=== PATIENT | male | born 1945 | race Caucasian/White ===

== ENCOUNTER 2018-02-12 10:47 | Inpatient (IN) | payer OTHER, MEDICARE ==
[~2018-02-12] VITALS: Ht 175.3 cm; Wt 68.9 kg
[~2018-02-12 10:47] MED LIST: AMIT25 PO; AMLO5 PO; ASPI81CH PO; ASPI81EC; ATOR40TA PO; CLOP75; CLOP75 PO; CYCL10 PO; FAMO20 PO; HYDACE5 PO; HYDACE5325 PO; ISOMON30; LISI20 PO; LISI5; LORA1 PO; MELO7.5 PO; METO100 PO; METO25 PO; METO50; NITR.3SL; NITR.4SL SL; Nitroglycerin0.4 MG SL; Norco 10-325 T1 EACH PO; OMEP20ER PO; OXYACE5T PO; OXYC5 PO; PRAV10 PO; PROC5 PO; PROM25 PO; PYRI100 PO; QUET100 PO; RANI150 PO; SERT50 PO; SIMV40; TRAM50 PO; TRAZ100; TRIHYD253B PO; Ultram50 MG PO
[2018-02-13 05:33] LABS: BASOPHILS PERCENT AUTO 1 % (0-2); EOSINOPHILS ABSOLUTE AUTO 0.29 K/mm3 (0.00-0.68); EOSINOPHILS PERCENT AUTO 3 % (0-6); Hemoglobin 14.2 g/dL (13.5-17.5); IMMATURE GRAN ABSOLUTE AUTO 0.03 K/mm3 (0.00-0.10); IMMATURE GRAN PERCENT AUTO 0 % (0-1); LYMPHOCYTES ABSOLUTE AUTO 1.98 K/mm3 (0.84-5.20); LYMPHOCYTES PERCENT AUTO 19 % (21-46); MONOCYTES ABSOLUTE AUTO 0.98 K/mm3 (0.16-1.47); MONOCYTES PERCENT AUTO 10 % (4-13); Mean Corpuscular HGB 30.9 pg (26.0-34.0); Mean Corpuscular HGB Conc 33.8 g/dL (31.5-36.5); Mean Corpuscular Volume 92 fL (80-100); NEUTROPHILS ABSOLUTE AUTO 6.97 K/mm3 (1.96-9.15); NEUTROPHILS PERCENT AUTO 67 % (41-73); Platelet Count 339 K/mm3 (150-400); RDW Coefficient Variation 13.5 % (11.7-14.2); Red Blood Cell Count 4.59 M/mm3 (4.30-5.90); White Blood Cell Count 10.35 K/mm3 (4.00-11.30)
[2018-02-13 05:51] LABS: Anion Gap 7 mmol/L (6-16); Blood Urea Nitrogen 18 mg/dL (8-24); Bun/Creatinine Ratio 29.8 (12.0-20.0); CO2, Blood 25 mmol/L (21-32); Calcium, Blood 8.6 mg/dL (8.5-10.1); Chloride, Blood 110 mmol/L (98-108); Creatinine, Blood 0.61 mg/dL (0.60-1.20); Glomerular Filtration Rate >60 (60-); Glucose, Blood 97 mg/dL (70-99); Potassium, Blood 4.1 mmol/L (3.5-5.5); Sodium, Blood 142 mmol/L (136-145)
[2018-02-15] MEDS ORDERED: ACET325 PO (10:48)
[2018-02-15] MEDS ORDERED: ALUM-MAG HYDRO360 ML PO (10:49)
[2018-02-15] MEDS ORDERED: DOCU100 PO (10:49)
[2018-02-15] MEDS ORDERED: HYOS.125 SL (10:50)
== END 2018-02-15 12:35 | disposition home or self-care (01) | DRG 392 ==
LOC: ER 10:47 → MEDS 10:48
PROVIDERS: Hospitalist
DX: K52.9 Noninfective gastroenteritis and colitis, unspecified (principal); K56.7 Ileus, unspecified; I10 Essential (primary) hypertension; I25.10 Atherosclerotic heart disease of native coronary artery without angina pectoris; F41.8 Other specified anxiety disorders; Z95.5 Presence of coronary angioplasty implant and graft; Z79.82 Long term (current) use of aspirin; G89.29 Other chronic pain
CPT/HCPCS: 36415; 74018; 74177; 80048; 85025; 96361; 96372; 96374; 96375; 96376; 99285; C9113; G0378; J1650; J1885; J2405; J2765; J3010; J7120; Q9967

== ENCOUNTER 2022-11-20 23:26 | Observation (INO) | payer OTHER ==
[~2022-11-20] VITALS: Ht 165.1 cm; Wt 72.6 kg
[~2022-11-20 23:26] MED LIST changes: +ACET325 PO; +ALUM-MAG HYDRO360 ML PO; +CARAFATE1 GM/10 M1 PO; +DOCU100 PO; +HYOS.125 SL; +ONDA4ODT MM
[2022-11-20 23:51] LABS: BASOPHILS PERCENT AUTO 1 % (0-2); EOSINOPHILS ABSOLUTE AUTO 0.07 K/mm3 (0.00-0.68); EOSINOPHILS PERCENT AUTO 1 % (0-6); Hematocrit 44.2 % (37.0-53.0); Hemoglobin 14.9 g/dL (13.5-17.5); IMMATURE GRAN ABSOLUTE AUTO 0.04 K/mm3 (0.00-0.10); IMMATURE GRAN PERCENT AUTO 0 % (0-1); LYMPHOCYTES PERCENT AUTO 10 % (21-46); MONOCYTES ABSOLUTE AUTO 0.95 K/mm3 (0.16-1.47); MONOCYTES PERCENT AUTO 8 % (4-13); Mean Corpuscular HGB 30.9 pg (26.0-34.0); Mean Corpuscular HGB Conc 33.7 g/dL (31.5-36.5); Mean Corpuscular Volume 92 fL (80-100); Mean Platelet Volume 10.8 fL (9.1-12.4); NEUTROPHILS ABSOLUTE AUTO 10.11 K/mm3 (1.96-9.15); NEUTROPHILS PERCENT AUTO 80 % (41-73); Platelet Count 233 K/mm3 (150-400); RDW Coefficient Variation 15.3 % (11.7-14.2); Red Blood Cell Count 4.82 M/mm3 (4.30-5.90); White Blood Cell Count 12.57 K/mm3 (4.00-11.30)
[2022-11-21 00:05] LABS: Albumin, Blood 3.2 g/dL (3.4-5.0); Albumin/Globulin Ratio 0.8 (0.8-1.8); Bilirubin, Total 0.6 mg/dL (0.1-1.0); Bun/Creatinine Ratio 23.7 (12.0-20.0); Calcium, Blood 9.2 mg/dL (8.5-10.1); Creatinine, Blood 0.76 mg/dL (0.60-1.20); Globulin, Blood 3.8 g/dL (2.2-4.0)
[2022-11-21 05:06] LABS: BASOPHILS ABSOLUTE AUTO 0.06 K/mm3 (0.00-0.23); BASOPHILS PERCENT AUTO 0 % (0-2); EOSINOPHILS PERCENT AUTO 0 % (0-6); Hematocrit 45.6 % (37.0-53.0); Hemoglobin 15.6 g/dL (13.5-17.5); IMMATURE GRAN ABSOLUTE AUTO 0.04 K/mm3 (0.00-0.10); IMMATURE GRAN PERCENT AUTO 0 % (0-1); LYMPHOCYTES ABSOLUTE AUTO 0.67 K/mm3 (0.84-5.20); LYMPHOCYTES PERCENT AUTO 4 % (21-46); MONOCYTES ABSOLUTE AUTO 0.67 K/mm3 (0.16-1.47); MONOCYTES PERCENT AUTO 4 % (4-13); Mean Corpuscular HGB 31.2 pg (26.0-34.0); Mean Corpuscular HGB Conc 34.2 g/dL (31.5-36.5); Mean Corpuscular Volume 91 fL (80-100); Mean Platelet Volume 10.6 fL (9.1-12.4); NEUTROPHILS ABSOLUTE AUTO 14.39 K/mm3 (1.96-9.15); NEUTROPHILS PERCENT AUTO 91 % (41-73); Platelet Count 228 K/mm3 (150-400); RDW Coefficient Variation 15.2 % (11.7-14.2); RDW Standard Deviation 51.5 fL (35.1-46.3); White Blood Cell Count 15.83 K/mm3 (4.00-11.30)
[2022-11-21] MEDS ORDERED: CYCLOBENZAPRINE5 MG PO (05:20)
[2022-11-21] MEDS ORDERED: PROM25 PO (05:21)
[2022-11-21] MEDS ORDERED: LOSA25 PO (05:24)
[2022-11-21] MEDS ORDERED: METO25 PO (05:25)
[2022-11-21] MEDS ORDERED: QUET25 PO (05:26)
--- NOTE | 2022-11-21 05:30 | NUR ---
SHIFT SUMMARY: PT IS ALERT AND ORIENTED. PT IS RATHER ANXIOUS AND CONCERNED ABOUT HIS CONDITION. PT IS COOPERATIVE WITH CARE. PT IS A STANDBY ASSIST TO THE BATHROOM. PT REPORTS ABD/EPIGASTRIC PAIN, NAUSEA, AND VOMITING, MEDICATING PER EMAR. PT DENIES SOB, SATS > 90% ON ROOM AIR. FLUIDS RUNNING ORDERED. TELE IN PLACE, RUNNING SINUS TACH. BED IN LOW POSITION, CALL LIGHT WITHIN REACH. WILL CONTINUE TO MONITOR AND REPORT TO DAY NURSE.
[2022-11-21 05:36] LABS: Albumin, Blood 3.4 g/dL (3.4-5.0); Albumin/Globulin Ratio 0.9 (0.8-1.8); Bilirubin, Total 0.8 mg/dL (0.1-1.0); Bun/Creatinine Ratio 26.3 (12.0-20.0); Calcium, Blood 8.9 mg/dL (8.5-10.1); Creatinine, Blood 0.72 mg/dL (0.60-1.20); Globulin, Blood 3.9 g/dL (2.2-4.0); Potassium, Blood 3.9 mmol/L (3.5-5.5); Total Protein, Blood 7.3 g/dL (6.4-8.2)
[2022-11-21 10:15] LABS: CPK Creatine Kinase 26 U/L (39-308)
--- NOTE | 2022-11-21 18:16 | NUR ---
SHIFT SUMMARY PT A&OX4 AND IN PLEASENT TALKATIVE MOOD T/O SHIFT. TOLERATING PO INTAKE, C/O PAIN T/O SHIFT MEDICATED PER EMAR. NAUSEA MEDICATED PER EMAR. CALL LIGHT W/IN REACH. IND IN ROOM. TELE IN PLACE, SR.
[2022-11-21 18:33] LABS: CPK Creatine Kinase 35 U/L (39-308)
[2022-11-22 06:15] LABS: BASOPHILS ABSOLUTE AUTO 0.09 K/mm3 (0.00-0.23); BASOPHILS PERCENT AUTO 1 % (0-2); EOSINOPHILS ABSOLUTE AUTO 0.11 K/mm3 (0.00-0.68); EOSINOPHILS PERCENT AUTO 1 % (0-6); Hematocrit 42.7 % (37.0-53.0); Hemoglobin 14.5 g/dL (13.5-17.5); IMMATURE GRAN ABSOLUTE AUTO 0.05 K/mm3 (0.00-0.10); IMMATURE GRAN PERCENT AUTO 0 % (0-1); LYMPHOCYTES ABSOLUTE AUTO 1.31 K/mm3 (0.84-5.20); LYMPHOCYTES PERCENT AUTO 9 % (21-46); MONOCYTES ABSOLUTE AUTO 1.18 K/mm3 (0.16-1.47); MONOCYTES PERCENT AUTO 8 % (4-13); Mean Corpuscular HGB 31.2 pg (26.0-34.0); Mean Corpuscular Volume 92 fL (80-100); Mean Platelet Volume 10.6 fL (9.1-12.4); NEUTROPHILS ABSOLUTE AUTO 11.72 K/mm3 (1.96-9.15); NEUTROPHILS PERCENT AUTO 81 % (41-73); Platelet Count 227 K/mm3 (150-400); RDW Coefficient Variation 15.4 % (11.7-14.2); Red Blood Cell Count 4.65 M/mm3 (4.30-5.90); White Blood Cell Count 14.46 K/mm3 (4.00-11.30)
--- NOTE | 2022-11-22 06:23 | NUR ---
PATIENT ALERT AND ORIENTED, SR ON TELE, ROOM AIR, INDEPENDENT, 20 RFA SL, CLEAR LIQUID DIET, ECHO DONE 11/21, CT DONE 11/21, MEDICATED FOR PAIN PER EMAR, NO EVENTS OVERNIGHT
[2022-11-22 06:34] LABS: Bun/Creatinine Ratio 29.3 (12.0-20.0); Calcium, Blood 8.6 mg/dL (8.5-10.1); Creatinine, Blood 0.62 mg/dL (0.60-1.20); Potassium, Blood 4.2 mmol/L (3.5-5.5)
[2022-11-22] MEDS ORDERED: METO5A PO (12:11)
--- NOTE | 2022-11-22 14:53 | NUR ---
DISCHARGE SUMMARY: PATIENT REPORTED PAIN TO LEFT SHOULDER AND CHEST THROUGHOUT THE SHIFT. PATIENT REPORTS THAT HE HAS BEEN EXPERIENCING THIS FOR THE LAST TWO MONTHS. PATIENT VITALS STABLE. NO CHANGES TO TELE THROUGHOUT THE SHIFT. PATIENT IS CALM AND PLEASANT WITH THE STAFF. PATIENT INDEPENDENT IN THE ROOM. PATIENT REPORTS MILD DIZZINESS AT TIMES. PATIENT RESTS APPROPRIATELY AND AMBULATES IN THE ROOM SAFELY. PATIENT DENIED DIARRHEA. PATIENT REPORTS MILD NAUSEA. PATIENT ABLE TO TOLERATE PO INTAKE WITHOUT INCREASE IN NAUSEA OR GI DISCOMFORT. PER ORDERS, PATIENT IS READY FOR DISCHARGE. ENCOURAGED PATIENT TO FOLLOW UP WITH A MEDICATION REVIEW AT THE VIA PER SOME OF HIS QUESTIONS ABOUT HIS MEDICATIONS. [facility]. DISCHARGE EDUCATION AND INSTRUCTIONS PROVIDED. QUESTIONS AND CONCERNS ADDRESSED. PATIENT DISCHARGE IN WHEELCHAIR WITH MAIL SORTING SUPERVISOR. PATIENT STABLE AT TIME OF DISCHARGE.
== END 2022-11-22 14:32 | disposition home or self-care (01) ==
LOC: ER 23:26 → MEDS 23:27
PROVIDERS: Emergency Medicine; Internal Medicine; ADMIT Internal Medicine
DX: R07.89 Other chest pain (principal); R13.10 Dysphagia, unspecified; G89.29 Other chronic pain; K52.9 Noninfective gastroenteritis and colitis, unspecified; F41.9 Anxiety disorder, unspecified; F32.A Depression, unspecified; I25.10 Atherosclerotic heart disease of native coronary artery without angina pectoris; J44.9 Chronic obstructive pulmonary disease, unspecified; K22.70 Barrett's esophagus without dysplasia; I25.2 Old myocardial infarction; I10 Essential (primary) hypertension; E78.00 Pure hypercholesterolemia, unspecified; Z79.02 Long term (current) use of antithrombotics/antiplatelets; Z95.5 Presence of coronary angioplasty implant and graft; Z79.899 Other long term (current) drug therapy; Z88.2 Allergy status to sulfonamides; Z88.1 Allergy status to other antibiotic agents; Z91.011 Allergy to milk products; Z88.8 Allergy status to other drugs, medicaments and biological substances
CPT/HCPCS: 36415; 71045; 74176; 80048; 80053; 82550; 82947; 83036; 83690; 83735; 83880; 84484; 85025; 93005; 93010; 93306; 96372; 96374; 96375; 96376; 99285-25; A9270; C9113; G0378; J1170; J1650; J2270; J2405; J2550; J2765; J3010; J7030

== ENCOUNTER 2023-09-10 11:39 | Emergency (ER) | payer OTHER ==
[~2023-09-10] VITALS: Ht 167.6 cm; Wt 81.7 kg
[~2023-09-10 11:39] MED LIST changes: +CYCLOBENZAPRINE5 MG PO; +LOSA25 PO; +METO5A PO; +QUET25 PO
[2023-09-10 12:47] LABS: BASOPHILS ABSOLUTE AUTO 0.06 K/mm3 (0.00-0.23); BASOPHILS PERCENT AUTO 1 % (0-2); EOSINOPHILS ABSOLUTE AUTO 0.11 K/mm3 (0.00-0.68); EOSINOPHILS PERCENT AUTO 1 % (0-6); Hematocrit 43.9 % (37.0-53.0); Hemoglobin 15.1 g/dL (13.5-17.5); IMMATURE GRAN ABSOLUTE AUTO 0.02 K/mm3 (0.00-0.10); IMMATURE GRAN PERCENT AUTO 0 % (0-1); LYMPHOCYTES ABSOLUTE AUTO 1.12 K/mm3 (0.84-5.20); LYMPHOCYTES PERCENT AUTO 14 % (21-46); MONOCYTES PERCENT AUTO 7 % (4-13); Mean Corpuscular HGB 32.1 pg (26.0-34.0); Mean Corpuscular HGB Conc 34.4 g/dL (31.5-36.5); Mean Corpuscular Volume 93 fL (80-100); NEUTROPHILS ABSOLUTE AUTO 6.25 K/mm3 (1.96-9.15); NEUTROPHILS PERCENT AUTO 77 % (41-73); Platelet Count 212 K/mm3 (150-400); RDW Coefficient Variation 13.9 % (11.7-14.2); RDW Standard Deviation 47.8 fL (35.1-46.3); White Blood Cell Count 8.16 K/mm3 (4.00-11.30)
[2023-09-10 12:51] LABS: Source, Urine Clean Catch
[2023-09-10 13:05] LABS: Appearance, Urine Cloudy (Clear); Bilirubin, Urine Neg (Neg); Blood, Urine Neg (Neg); Color, Urine Yellow (P-Yellow); Glucose Qualitative, Urine Neg (Neg); Ketones, Urine Neg (Neg); Leukocyte Esterase, Urine Neg (Neg); Nitrite, Urine Neg (Neg); Protein, Urine Neg (Neg); Specific Gravity, Urine 1.015 (1.003-1.022); Urobilinogen, Urine 1+ (Normal)
[2023-09-10 13:05] LABS: Albumin, Blood 3.3 g/dL (3.4-5.0); Albumin/Globulin Ratio 0.9 (0.8-1.8); Bilirubin, Total 0.6 mg/dL (0.1-1.0); Bun/Creatinine Ratio 18.9 (12.0-20.0); Creatinine, Blood 0.74 mg/dL (0.60-1.20); Globulin, Blood 3.8 g/dL (2.2-4.0); Magnesium, Blood 2.3 mg/dL (1.6-2.4); Total Protein, Blood 7.1 g/dL (6.4-8.2)
[2023-09-10 13:06] LABS: Potassium, Blood 5.4 mmol/L (3.5-5.5)
[2023-09-10 13:15] LABS: Amorphous Heavy (0-Heavy); Bacteria Rare /hpf; Red Blood Cells, Urine 0-2 /hpf (0-2); Squamous Epithelial Cells Few /hpf (Few); White Blood Cells, Urine 0-2 /hpf (0-5)
[2023-09-10 13:55] LABS: Influenza A, PCR NEGATIVE (NEGATIVE); Influenza B, PCR NEGATIVE (NEGATIVE); Resp Syncytial Virus, PCR NEGATIVE (NEGATIVE); SARS-Cov-2 (COVID-19) PCR, MMC NEGATIVE (NEGATIVE)
[2023-09-10 14:00] VITALS: BP 146/77
== END 2023-09-10 14:28 | disposition home or self-care (01) ==
LOC: ER 11:39
PROVIDERS: Emergency Medicine
DX: R53.1 Weakness (principal); R55 Syncope and collapse; Z11.52 Encounter for screening for COVID-19; Z87.891 Personal history of nicotine dependence; Z79.02 Long term (current) use of antithrombotics/antiplatelets; Z79.899 Other long term (current) drug therapy
CPT/HCPCS: 0241U; 80053; 81001; 83690; 83735; 84484; 85025; 93005; 93010; 96361; 96374; 96375; 99284-25; J1885; J2405; J7030